=== PATIENT | female | born 1970 | race Caucasian/White ===

== ENCOUNTER 2024-02-06 08:00 | Day surgery (SDC) | payer OTHER ==
[~2024-02-06 08:00] MED LIST: PROMETRIUM200 MG
[2024-02-06] MEDS ORDERED: CLINDAMYCIN PHOSPHATE 150 MG/ML (900mg) ONE (12:36)
[2024-02-06] MEDS ORDERED: GENTAMICIN SULFATE 40 MG/ML VIAL ONE (13:23)
[2024-02-06] MEDS ORDERED: CEFAZOLIN SODIUM 1,000 MG VIAL ONE (13:24)
[2024-02-06] MEDS ORDERED: POVIDONE-IODINE SCRUB 118 ML BOTT TOP ONE ×2 (13:24→14:15)
[2024-02-06] MEDS ORDERED: MORPHINE SULFATE 4 MG/ML VIAL IV PRN (13:45)
[2024-02-06] MEDS ORDERED: ONDANSETRON HCL 2 MG/ML VIAL IV PRN (13:45)
[2024-02-06] MEDS ORDERED: GENTAMICIN SULFATE 40 MG/ML VIAL IR ONE (14:15)
[2024-02-06] MEDS ORDERED: CLINDAMYCIN PHOSPHATE 150 MG/ML (900mg) IV ONE (14:15)
[2024-02-06] MEDS ORDERED: POVIDONE-IODINE 118 ML BOTT TOP ONE (14:15)
[2024-02-06] MEDS ORDERED: CEFAZOLIN SODIUM 1,000 MG VIAL IV ONE (14:15)
== END 2024-02-06 17:20 | disposition home or self-care (01) ==
LOC: CIR.AMB 08:00
PROVIDERS: ATTEND Plastic Surgery
DX: T85.44XA Capsular contracture of breast implant, initial encounter (principal)